=== PATIENT | male | born 1995 | race Two or more races ===

== ENCOUNTER 2020-08-14 21:36 | Emergency (ER) | payer SELFPAY ==
[~2020-08-14] VITALS: Ht 182.9 cm; Wt 157.9 kg
[2020-08-14 22:22] VITALS: BP 134/56
== END 2020-08-15 00:14 | disposition home or self-care (01) ==
LOC: ER 21:38
DX: U07.1 COVID-19 (principal); J18.9 Pneumonia, unspecified organism
CPT/HCPCS: 71045